=== PATIENT | male | born 1960 | race Caucasian/White ===

== ENCOUNTER 2021-10-02 17:32 | Inpatient (IN) | payer OTHER ==
[~2021-10-02] VITALS: Ht 177.8 cm; Wt 86.4 kg
[2021-10-02 19:24] LABS: BASOPHILS % (AUTO) 0.6 % (0.0-2.0); EOSINOPHILS % (AUTO) 1.2 % (1.0-6.0); HEMATOCRIT 41.2 % (41-53); HEMOGLOBIN 13.8 g/dL (13.5-17.5); LYMPHOCYTES # (AUTO) 1.2 K/uL (1.0-4.8); LYMPHOCYTES % (AUTO) 19.3 % (22.0-44.0); MEAN CORPUSCULAR HEMOGLOBIN 29.6 pg (26.0-34.0); MEAN CORPUSCULAR HGB CONC 33.5 G/dL (31.0-37.0); MEAN CORPUSCULAR VOLUME 89 fL (80-100); MONOCYTES # (AUTO) 0.4 K/uL (0.1-1.0); MONOCYTES % (AUTO) 6.7 % (2.0-9.0); NEUTROPHILS # (AUTO) 4.6 K/uL (1.8-7.7); NEUTROPHILS % (AUTO) 72.2 % (40.0-70.0); PLATELET COUNT (AUTO) 226 K/uL (150-450); RED BLOOD CELL COUNT(AUTO) 4.66 MIL/uL (4.50-5.90); RED CELL DISTRIBUTION WIDTH 14.6 % (11.5-14.5)
[2021-10-02 19:30] LABS: COVID AG,FIA SOURCE NASOPHARYNGEAL
[2021-10-02 19:32] LABS: ANION GAP 8 mmol/L (8-16); CALCIUM, TOTAL 8.8 mg/dL (8.8-10.5); CARBON DIOXIDE 28 mmol/L (22-29); CHLORIDE 103 mmol/L (98-107); CREATININE 0.85 mg/dL (0.60-1.30); GLOMERULAR FILTR. RATE CALC > 60 mL/min (>60); GLUCOSE,RANDOM 94 mg/dL (70-110); POTASSIUM 3.9 mmol/L (3.5-5.1); SODIUM SERUM 139 mmol/L (136-145); UREA NITROGEN, BLOOD 21 mg/dL (7-18)
[2021-10-02 19:38] LABS: ALANINE AMINOTRANSFERASE 34 U/L (12-78); ALBUMIN 3.5 g/dL (3.4-5.0); ALKALINE PHOSPHATASE 69 U/L (46-116); ASPARTATE AMINOTRANSFERASE 24 U/L (15-37); BILIRUBIN,TOTAL 0.7 mg/dL (0.1-1.0); TOTAL PROTEIN, SERUM 6.8 g/dL (6.4-8.2)
[2021-10-02] MEDS ORDERED: ZOLPIDEM TARTRATE 5 MG TABLET PO PRN (20:00)
[2021-10-02] MEDS ORDERED: ONDANSETRON HCL 4 MG/2 ML VIAL IVP PRN ×2 (20:00)
[2021-10-02] MEDS ORDERED: MAGNESIUM HYDROXIDE SUSPENSION 30 ML UDCUP PO PRN (20:00)
[2021-10-02] MEDS ORDERED: ACETAMINOPHEN 325 MG TABLET PO PRN ×2 (20:00)
[2021-10-02 20:20] VITALS: BP 134/94
[2021-10-02] MEDS: LORazepam 1 MG TABLET PO PRN (20:40)
[2021-10-03] MEDS ORDERED: INFLUENZA VIRUS VACCINE QVS 2021-22 (6MO+)/PF 60 MCG/0.5 ML SYRINGE IM. ONE (03:00)
[2021-10-03 06:35] VITALS: BP 135/99
[2021-10-03] MEDS: HEPARIN SODIUM,PORCINE 5,000 UNITS/ML VIAL SQ SCH ×3 (09:12→16:18)
[2021-10-03] MEDS: FAMOTIDINE 20 MG TABLET PO SCH (09:12)
[2021-10-03 16:07] VITALS: BP 129/91
[2021-10-03] MEDS: LORazepam 1 MG TABLET PO PRN (16:16)
[2021-10-03 19:10] VITALS: BP 119/73
[2021-10-04 05:16] VITALS: BP 132/92
[2021-10-04 08:26] VITALS: BP 130/92
[2021-10-04] MEDS: FAMOTIDINE 20 MG TABLET PO SCH (08:37)
[2021-10-04] MEDS: HEPARIN SODIUM,PORCINE 5,000 UNITS/ML VIAL SQ SCH ×3 (08:38→16:00)
[2021-10-04] MEDS ORDERED: MOM30 PO (10:30)
[2021-10-04] MEDS ORDERED: ACET650S24 PR (10:31)
[2021-10-04 15:42] VITALS: BP 129/91
[2021-10-04 19:36] VITALS: BP 134/105
[2021-10-05] MEDS: HEPARIN SODIUM,PORCINE 5,000 UNITS/ML VIAL SQ SCH
[2021-10-05 04:09] VITALS: BP 137/109
[2021-10-05 06:04] VITALS: BP 138/101
== END 2021-10-05 06:50 | DRG 897 ==
LOC: EMS 17:35 → 6S 19:55
PROVIDERS: ADMIT Internal Medicine; ATTEND Internal Medicine
DX: F11.13 Opioid abuse with withdrawal (principal); F17.210 Nicotine dependence, cigarettes, uncomplicated; Z20.822 Contact with and (suspected) exposure to COVID-19
CPT/HCPCS: 80053; 85025; 99285; J1644

== ENCOUNTER 2021-10-05 07:32 | Emergency (ER) | payer OTHER ==
[~2021-10-05] VITALS: Ht 177.8 cm; Wt 86.4 kg
[~2021-10-05 07:32] MED LIST: ACET650S24 PR; MOM30 PO
[2021-10-05 07:34] VITALS: BP 121/56
[2021-10-05] MEDS ORDERED: BACITRACIN 0.9 GM PACKET OINTMENT TP ONE (07:45)
[2021-10-05] MEDS ORDERED: PERTUSS(ACELL),DIPH,TET VAC/PF 0.5 ML SYRINGE IM. ONE (07:45)
== END 2021-10-05 07:49 | disposition home or self-care (01) ==
LOC: EMS 07:35
DX: S00.01XA Abrasion of scalp, initial encounter (principal); F11.90 Opioid use, unspecified, uncomplicated; F17.210 Nicotine dependence, cigarettes, uncomplicated; Z79.899 Other long term (current) drug therapy; W22.8XXA Striking against or struck by other objects, initial encounter; Y93.89 Activity, other specified; Y92.143 Cell of prison as the place of occurrence of the external cause; Y99.8 Other external cause status
CPT/HCPCS: 90471; 90715; 99283

== ENCOUNTER 2025-09-12 19:30 | Emergency (ER) | payer MEDICAID, OTHER ==
[~2025-09-12] VITALS: Ht 172.7 cm; Wt 81.8 kg
[~2025-09-12 19:30] MED LIST changes: +MAGN-169 PO; -MOM30 PO
[2025-09-12 19:35] VITALS: BP 118/72; PULSE 82; RESP 18; TEMP 98.2; O2SAT 98
[2025-09-12] MEDS ORDERED: HYDR-4062 PO (23:02)
[2025-09-12] MEDS ORDERED: IBUP-1492 PO (23:02)
[2025-09-12] MEDS: KETOROLAC TROMETHAMINE 30 MG/ML VIAL IM ONE (23:09)
[2025-09-12] MEDS: HYDROCODONE/ACETAMINOPHEN 5-325 MG TABLET PO ONE (23:10)
== END 2025-09-12 23:44 | disposition home or self-care (01) ==
LOC: EMS 19:30
DX: S22.42XA Multiple fractures of ribs, left side, initial encounter for closed fracture (principal); F17.210 Nicotine dependence, cigarettes, uncomplicated; F11.90 Opioid use, unspecified, uncomplicated; Z79.899 Other long term (current) drug therapy; W06.XXXA Fall from bed, initial encounter; Y93.89 Activity, other specified; Y92.89 Other specified places as the place of occurrence of the external cause; Y99.8 Other external cause status
CPT/HCPCS: 99283; 71101; 96372; G0238; J1885